=== PATIENT | male | born 1950 | race Caucasian/White ===

== ENCOUNTER 2020-04-12 13:23 | Outpatient (CLI) | payer OTHER, SELFPAY ==
--- NOTE | 2020-04-12 13:31 | ECG_ITS ---
Measurements Intervals [place] Rate: 87 P: 72 SC: 138 QRS: -8 QRSD: 79 T: 67 QT: 362 QTc: 436 Interpretive Statements SINUS RHYTHM BASELINE ARTIFACT- I, III, AVR, AVL NORMAL ECG Electronically Signed On 04-12-2020 14:00:50 CDT by Charles Brown D.O.
== END 2020-04-12 13:24 | disposition home or self-care (01) ==
PROVIDERS: Visit Provider Urology
DX: I10 Essential (primary) hypertension (principal)
CPT/HCPCS: 93005

== ENCOUNTER 2020-04-19 00:39 | Outpatient (CLI) | payer OTHER, SELFPAY ==
[2020-04-19 18:35] LABS: SARS-CoV-2 RNA PCR Negative
== END 2020-04-19 00:40 | disposition home or self-care (01) ==
LOC: ANHCOVIDDT 00:41
PROVIDERS: Visit Provider Urology
DX: Z01.812 Encounter for preprocedural laboratory examination (principal); Z20.828 Contact with and (suspected) exposure to other viral communicable diseases
CPT/HCPCS: 87635; C9803; U0003

== ENCOUNTER 2020-04-21 01:08 | Day surgery (SDC) | payer OTHER, SELFPAY ==
[2020-04-12 08:27] VITALS: BMI 21.8
--- NOTE | 2020-04-14 14:34 | P.HP_ITS ---
History of Present Illness History of Present Illness Consent: Risks, benefits, and alternatives have been discussed and questions answered. Patient agrees to proceed with procedure. Chief complaint: Prostate Cancer Narrative: Vel Young is a 70 year old male recently diagnosed (via biopsy by my partner, ,Dr. Eliana Cote) with clinical stage T1c prostate cancer. He's elected for definitive pelvic radiation for treatment and presents today of SpaceOAR placement. Review of Systems Cardiovascular: Cardiovascular: Denies chest pain, Denies lightheadedness, Denies palpitations and Denies dyspnea Respiratory: Respiratory: Denies dyspnea Gastrointestinal: Gastrointestinal: Denies diarrhea, Denies nausea and Denies vomiting Genitourinary: Genitourinary: Denies hematuria and Denies dysuria Endocrine: Endocrine: Denies palpitations PMFSH Social History Social History Smoking status: Current every day smoker Additional smoking assessment comments: 1/2-3/4PK/DAY/65YRS Alcohol intake: current Substance use: never Spiritual care concerns: No Meds Home Medications and Allergies Home Medications Medication Instructions Recorded Confirmed Type amlodipine 5 mg DAILY 04/12/20 04/12/20 History famotidine 20 mg DAILY 04/12/20 04/12/20 History fluticasone propion-salmeterol 1 inh INHALATION Q12H 04/12/20 04/12/20 History [Advair Diskus] guaifenesin [Mucinex] 600 mg PO Q12H PRN 04/12/20 04/12/20 History tiotropium bromide [Spiriva with 1 cap INHALATION DAILY 04/12/20 04/12/20 History HandiHaler] Allergies Allergy/AdvReac Type Severity Reaction Status Date / Time No Known Allergies Allergy Verified 04/12/20 08:36 Exam Const: General: no acute distress Resp: Effort & Inspection: normal respiratory effort GI: Inspection: non-distended GI Palp: No abdominal tenderness and No Guarding due to palpation present (GI) Auscultation: normal bowel sounds Assessment and Plan Assessment and plan (1) Prostate CA: Code(s): C61 - Malignant neoplasm of prostate Status: Acute Assessment and Plan: * Transrectal ultrasound with transperineal placement of SpaceOAR. Pt. aware of risks of this procedure including, but not limited to, rectal injury, urinary tract infection with possible sepsis or septic shock, hematuria and inability to deliver the SpaceOAR. He also aware there is no alternative procedure to accomplish the same ends at this time.
[2020-04-21] VITALS (7 sets, daily range): BP systolic 117–134; BP diastolic 56–74; PULSE 70–91; RESP 12–19; TEMP 36.3; O2SAT 95–100
[2020-04-21] MEDS: LACTATED RINGERS 1,000 ML 30 ML IV CONT (06:25)
--- NOTE | 2020-04-21 06:50 | WPDHPUPDATE1 ---
History and Physical Update Update Date/Time: 04/21/20 06:50 History and Physical has been reviewed, including an updated exam of the patient. There are NO changes in the patient's condition. Risks, benefits, and alternatives have been discussed and questions answered. Patient agrees to proceed with procedure.
--- NOTE | 2020-04-21 07:10 | P.PNAN_ITS ---
Anes - Initial Pre Proc Eval Procedure: Operation Date: 04/21/20 07:30 Proposed Procedures p Insertion SpaceOAR Hydrogel System - Sj Ibrahim MD Date/Time: 04/21/20 07:10 Surgeon: Sj Ibrahim MD Pre Op Diagnosis: Prostate Cancer Patient Data Age: 70 Gender: M Height: 5 ft 6 in Weight: 63.1 kg Last Vital Signs Temp 97.4 F L 04/21/20 06:28 Pulse 91 04/21/20 06:28 Resp 18 04/21/20 06:28 BP 130/68 04/21/20 06:28 Pulse Ox 99 04/21/20 06:28 Allergies Allergy/AdvReac Type Severity Reaction Status Date / Time No Known Allergies Allergy Verified 04/21/20 06:02 Home Medications Medication Instructions Recorded Confirmed Type amlodipine 5 mg DAILY 04/12/20 04/21/20 History famotidine 20 mg DAILY 04/12/20 04/21/20 History fluticasone propion-salmeterol 1 inh INHALATION Q12H 04/12/20 04/21/20 History [Advair Diskus] guaifenesin [Mucinex] 600 mg PO Q12H PRN 04/12/20 04/21/20 History tiotropium bromide [Spiriva with 1 cap INHALATION DAILY 04/12/20 04/21/20 History HandiHaler] Patient hx anesthesia problems: none Family hx anesthesia problems: none [facility] Past Medical History Medical History (Updated 04/21/20 @ 07:10 by Sriram Lawrence MD) COPD (chronic obstructive pulmonary disease) uses O2 at night GERD (gastroesophageal reflux disease) Hyperlipidemia Hypertension Social History Social History Smoking status: Current every day smoker Additional smoking assessment comments: 1/2-3/4PK/DAY/65YRS Alcohol intake: current Substance use: never Living arrangements: with family Spiritual care concerns: No Anes - Eval Final PreProcedure Day of Procedure 04/21/20 07:10 Patient weight: normal Heart: regular rate and rhythm Lungs: clear to auscultation Airway: Mallampati scale class III Neurological: alert and oriented Last oral intake: >/= 8 hours ASA classification: III Emergent: no Anesthetic plan: proceed Anesthesia type and monitoring: general LMA and standard monitoring Informed Consent: The patient's anesthetic plan and its attendant risks and benefits were discussed with the patient/family/POA. Questions were solicited and answers provided to the satisfaction of the patient/family/POA.
[2020-04-21] MEDS: ceFAZolin 2 GM/D5W 50 ML 2 GM/50 ML BAG IVPB (07:27)
--- NOTE | 2020-04-21 07:50 | P.OP_ITS ---
Procedure Note - Detailed Date of procedure: 04/21/20 Pre-op diagnosis: Prostate Cancer Post-op diagnosis: same Procedure performed: Insertion SpaceOAR Description of procedure: This patient has been diagnosed with prostate cancer. Patient has met with a radiation oncologist who has prescribed a course of radiation for treatment of the malignancy. Please refer to the Radiation Oncologist's note for radiation method, dose, number of fractions. After discussing with the radiation oncologist and the patient, it has been agreed upon to proceed with SpaceOAR placement. The purpose of SpaceOAR is to reduce rectal irradiation during radiation therapy by placing an absorbable polyethylene glycol (PEG) hydrogel (SpaceOAR) into perirectal fat space, thereby pushing the rectum away from the prostate. Prior to the procedure, a timeout was performed confirming the patient's identity and planned the procedure. Anesthesia was induced without complication. Antibiotics were administered prophylactically, and the patient completed an enema at home prior to the procedure. The patient was positioned in the dorsal lithotomy position. A transrectal ultrasound probe was inserted per rectum with clear visualization of the prostatic base and apex. A bilateral pudendal nerve block was performed using a standard technique (1% lidocaine solution). The needle was advanced to the mid-perineum region and an adequate dose of Lidocaine was injected. Once this area became anesthetized, the needle was advanced until it was proximal to the pudendal nerve, and an additional dose of Lidocaine was injected. Once the area was adequately anesthetized placement of SpaceOAR commenced. Using ultrasound guidance, an axial measurement of the space between the prostate (mid gland) and rectum was noted and measured 2mm. SpaceOAR hydrogel was prepared as described in the regulatory assistant?s 'Instructions For Use'. Under transrectal ultrasound guidance, a 15 cm 18G needle was inserted, transperineal, through the rectourethralis muscle and the needle tip advanced into the perirectal fat posterior to the prostate. The needle position, and downward bevel, were confirmed in both sagittal and axial wilson. 3-5cc of Sterile Saline was used to hydro-dissect the space between the Denonvilliers? fascia and anterior rectal wall. Aspiration did not yield any bleeding. With the needle tip at mid gland, the axial field was viewed to confirm the needle was not in the rectal wall -- movement of the needle tip without corresponding movement of the rectal wall confirmed perirectal placement. The assembled SpaceOAR delivery system was then attached to the 18G needle. Under ultrasound guidance in the sagittal plane, a smooth, continuous injection technique was used to dispense all 10cc of the SpaceOAR hydrogel into the space between the prostate and rectum. Optimal visualization of the needle during hydrogel administration was maintained at all times. An axial measurement of the space between the prostate (mid gland) and rectum immediately post-SpaceOAR injection was noted and measured [11mm]. No suspected penetration or compromise of the rectal wall occurred. Anesthesia: GLMA Surgeon: Sj Ibrahim MD Estimated blood loss (mL): 0 Drains: No Packing: No Pathology: none sent Complications: No immediate complications Condition: stable Disposition: PACU
--- NOTE | 2020-04-21 08:08 | SUR.PHASEI ---
0755; NO BLEEDING FROM PUNCTURE SITE TO PERIANAL AREA.
--- NOTE | 2020-04-21 08:28 | SUR.PHASEI ---
PT AWAKE AND ALERT. STATES NO PAIN OR NAUSEA. STATES HE IS READY TO GO HOME AND GET SOME BREAKFAST
== END 2020-04-21 09:30 | disposition home or self-care (01) ==
PROVIDERS: Visit Provider Urology
PROC: (CPT 55874; principal; 2020-04-21 07:30)
DX: C61 Malignant neoplasm of prostate (principal); I10 Essential (primary) hypertension; E78.5 Hyperlipidemia, unspecified; J44.9 Chronic obstructive pulmonary disease, unspecified; K21.9 Gastro-esophageal reflux disease without esophagitis; F17.200 Nicotine dependence, unspecified, uncomplicated
CPT/HCPCS: 55874; A9270; J0690; J1100; J2405; J2704; J3010; J7120